=== PATIENT | male | born 1980 | race African-American/Black ===

== ENCOUNTER 2018-06-10 11:05 | Day surgery (SDC) | payer MEDICARE, MEDICAID ==
[~2018-06-10] VITALS: Ht 180.3 cm; Wt 127.0 kg
[~2018-06-10 11:05] MED LIST: BACLOFEN10 MG PO; BACTRIM DS1 TAB PO; FLEXERIL PO; IBUPROFEN600 MG PO; KEFLEX500 M1 PO; LORTAB 10-325 M1 TAB PO; NO MEDS; SURFAK240 MG/CAP PO; ULTRAM50 M1 PO; ZOHYDRO ER10 M1
[2018-06-10 11:40] LABS: BARBITURATES NEGATIVE (NEGATIVE); COCAINE NEGATIVE (NEGATIVE); METHADONE NEGATIVE (NEGATIVE); OXCYCODONE NEGATIVE (NEGATIVE); TETRAHYDROCANNABIONOL NEGATIVE (NEGATIVE); TRICYLIC ANTIDEPRESSANTS NEGATIVE (NEGATIVE)
[2018-06-10 14:46] VITALS: BP 119/67
== END 2018-06-10 15:05 | disposition home or self-care (01) ==
LOC: ORM 11:05
PROVIDERS: ATTEND Urology
PROC: 0VTTXZZ Resection of Prepuce, External Approach (ICD-10-PCS; principal; 2018-06-10)
DX: N47.1 Phimosis (principal); E66.9 Obesity, unspecified

== ENCOUNTER 2020-06-12 08:49 | Emergency (ER) | payer OTHER, MEDICARE, MEDICAID ==
[~2020-06-12] VITALS: Ht 27.9 cm; Wt 127.0 kg
[2020-06-12] MEDS ORDERED: DILAUDID8 MG PO (09:15)
[2020-06-12 11:00] LABS: GFR > 60 ML/MIN (>=60 (CALC)); GFR FOR AFR.AMER. > 60 ML/MIN (>=60 (CALC)); HEMATOCRIT 40.7 % (39.0-50.0); HEMOGLOBIN 13.3 g/dl (14.0-18.0); IMMATURE GRANULOCYTES 0.5 % (0.0-5.0); MEAN CELL VOLUME 88.3 fL CALC (80.0-100.0); MEAN CORPUSCULAR HGB 28.9 pG CALC (26.0-32.0); MEAN CORPUSCULAR HGB CONC 32.7 g/dL CAL (32.0-36.0); NEUT# 5.82 thou/uL (1.82-7.42); RED BLOOD COUNT 4.61 mill/uL (4.70-6.10); RED CELL DISTRI WIDTH 14.3 % (11.5-15.5)
[2020-06-12 11:08] LABS: URINE BILIRUBIN - DIPSTICK NEGATIVE (NEGATIVE); URINE BLOOD DIPSTICK TRACE-INTACT (NEGATIVE); URINE CLARITY CLEAR; URINE COLOR YELLOW; URINE GLUCOSE - DIPSTICK NEGATIVE (NEGATIVE); URINE KETONE NEGATIVE (NEGATIVE); URINE LEUK ESTERASE NEGATIVE (Negative); URINE NITRITE - DIPSTICK NEGATIVE (Negative); URINE PROTEIN - DIPSTICK TRACE mg/dL (NEG-TRACE); URINE SPECIFIC GRAVITY 1.025; URINE UROBILINOGEN - DIPSTICK 0.2 E.U./dL (0.2)
[2020-06-12 11:22] LABS: ACT PARTIAL THROMBO TIME 25.5 SECONDS (20.0-32.5); PROTHROMBIN TIME 9.9 SECONDS (9.0-12.5)
[2020-06-12 11:23] LABS: ALBUMIN 4.4 g/dL (3.2-5.0); ALKALINE PHOSPHATASE 93 u/l (38-126); ANION GAP 11 (6-22 (CALC)); BILIRUBIN, TOTAL 0.7 mg/dL (0.0-1.4); BUN 15 mg/dL (9-20); BUN/CREATININE RATIO 14 (12-20 (CALC)); CARBON DIOXIDE 29 mmol/l (22-30); CHLORIDE 105 mmol/l (95-108); GFR > 60 ML/MIN (>=60 (CALC)); GFR FOR AFR.AMER. > 60 ML/MIN (>=60 (CALC)); POTASSIUM 4.7 mmol/l (3.5-5.1); SGOT/AST 24 u/l (17-59); SODIUM 140 mmol/l (137-146); TOTAL PROTEIN 7.6 g/dL (6.3-8.2)
[2020-06-12 13:32] VITALS: BP 128/68
== END 2020-06-12 13:32 | DRG 552 ==
LOC: ED 08:49
PROVIDERS: Student in an Organized Health Care Education/Training Program
DX: S12.101A Unspecified nondisplaced fracture of second cervical vertebra, initial encounter for closed fracture (principal); M25.552 Pain in left hip; M79.652 Pain in left thigh; M54.5 Low back pain; I10 Essential (primary) hypertension; V49.40XA Driver injured in collision with unspecified motor vehicles in traffic accident, initial encounter
CPT/HCPCS: Q9967

== ENCOUNTER 2021-07-28 18:52 | Emergency (ER) | payer MEDICARE, MEDICAID ==
[~2021-07-28] VITALS: Ht 175.3 cm; Wt 127.0 kg
[~2021-07-28 18:52] MED LIST changes: +DILAUDID8 MG PO
[2021-07-28] MEDS ORDERED: METFORMIN500 M2 PO (19:27)
[2021-07-28] MEDS ORDERED: METOPROL TAR25 MG PO (19:28)
[2021-07-28] MEDS ORDERED: ATORVASTATIN CA10 MG PO (19:29)
[2021-07-28] MEDS ORDERED: NIACIN500 M2 PO (19:29)
[2021-07-28 20:00] LABS: HEMATOCRIT 41.3 % (39.0-50.0); HEMOGLOBIN 13.2 g/dl (14.0-18.0); IMMATURE GRANULOCYTES 0.2 % (0.0-5.0); MEAN CELL VOLUME 92.6 fL CALC (80.0-100.0); MEAN CORPUSCULAR HGB 29.6 pG CALC (26.0-32.0); NEUT# 5.13 thou/uL (1.82-7.42); RED BLOOD COUNT 4.46 mill/uL (4.70-6.10); RED CELL DISTRI WIDTH 13.6 % (11.5-15.5)
[2021-07-28 20:11] LABS: ALBUMIN 4.2 g/dL (3.2-5.0); ALKALINE PHOSPHATASE 91 u/l (38-126); ANION GAP 16 (6-22 (CALC)); BILIRUBIN, TOTAL 0.6 mg/dL (0.0-1.4); BUN 21 mg/dL (9-20); BUN/CREATININE RATIO 15 (12-20 (CALC)); CARBON DIOXIDE 30 mmol/l (22-30); CHLORIDE 101 mmol/l (95-108); CPK 147 u/l (52-200); CREATININE 1.4 mg/dL (0.7-1.3); GFR 57 ML/MIN (>=60 (CALC)); GFR FOR AFR.AMER. > 60 ML/MIN (>=60 (CALC)); MAGNESIUM 2.2 mg/dL (1.6-2.3); SGOT/AST 21 u/l (17-59); SODIUM 142 mmol/l (137-146); TOTAL PROTEIN 7.8 g/dL (6.3-8.2)
[2021-07-28 20:11] LABS: URINE BILIRUBIN - DIPSTICK NEGATIVE (NEGATIVE); URINE BLOOD DIPSTICK MODERATE (NEGATIVE); URINE COLOR YELLOW; URINE GLUCOSE - DIPSTICK NEGATIVE (NEGATIVE); URINE KETONE NEGATIVE (NEGATIVE); URINE LEUK ESTERASE NEGATIVE (NEGATIVE); URINE PROTEIN - DIPSTICK NEGATIVE (NEG-TRACE); URINE SPECIFIC GRAVITY >=1.030; URINE UROBILINOGEN - DIPSTICK 0.2 E.U./dL (0.2)
[2021-07-28 20:15] LABS: URINE NITRITE - DIPSTICK NEGATIVE (Negative)
[2021-07-28 20:27] LABS: URINE WBC 0-2 WBC/hpf (0-5)
[2021-07-28] MEDS ORDERED: AMBIEN10 MG PO (20:58)
[2021-07-28 21:06] VITALS: BP 138/81
== END 2021-07-28 21:20 | disposition home or self-care (01) ==
LOC: ED 18:52
PROVIDERS: Family Medicine
DX: F43.29 Adjustment disorder with other symptoms (principal); F51.05 Insomnia due to other mental disorder; I10 Essential (primary) hypertension; E11.9 Type 2 diabetes mellitus without complications; E78.00 Pure hypercholesterolemia, unspecified; Z82.49 Family history of ischemic heart disease and other diseases of the circulatory system; Z79.84 Long term (current) use of oral hypoglycemic drugs